=== PATIENT | male | born 1970 | race Two or more races ===

== ENCOUNTER 2022-09-05 07:18 | Day surgery (SDC) | payer OTHER ==
[~2022-09-05] VITALS: Ht 171.4 cm; Wt 85.3 kg
[~2022-09-05 07:18] MED LIST: FARXIGA10 MG PO; FENOFIBRATE134 MG PO; JANUMET 50-5001 EACH PO; NORVASC5 MG PO; OMEGA-31000 MG PO; ZESTRIL20 MG PO
== END 2022-09-05 16:35 | disposition home or self-care (01) ==
LOC: CIR.AMB 07:18
PROVIDERS: ATTEND Colon & Rectal Surgery
DX: K64.2 Third degree hemorrhoids (principal); K64.4 Residual hemorrhoidal skin tags; K64.8 Other hemorrhoids; K92.2 Gastrointestinal hemorrhage, unspecified; I10 Essential (primary) hypertension; Z20.822 Contact with and (suspected) exposure to COVID-19